=== PATIENT | female | born 1995 | race Caucasian/White ===

== ENCOUNTER → 2016-09-22 11:30 | Outpatient (CLI) | payer OTHER | END | disposition home or self-care (01) | LOC: D.US 11:30 | DX: R93.8 Abnormal findings on diagnostic imaging of other specified body structures (principal) ==

== ENCOUNTER → 2017-01-27 12:14 | Outpatient (CLI) | payer OTHER | END | disposition home or self-care (01) | LOC: D.LDO 12:09 | DX: O36.8130 Decreased fetal movements, third trimester, not applicable or unspecified (principal); Z3A.39 39 weeks gestation of pregnancy ==

== ENCOUNTER → 2017-01-30 10:48 | Outpatient (CLI) | payer OTHER | END | disposition home or self-care (01) | LOC: D.LDO 10:48 | DX: O36.8130 Decreased fetal movements, third trimester, not applicable or unspecified (principal); O48.0 Post-term pregnancy; Z3A.40 40 weeks gestation of pregnancy ==

== ENCOUNTER → 2017-02-02 12:43 | Outpatient (CLI) | payer OTHER ==
[~2017-02-02 12:43] MED LIST: HYDROCODON-ACE1 EAC7 PO; IBUPROFEN600 MG PO; PRENATABS RX TA1 TAB PO
[2017-02-03 12:40] VITALS: BMI 27.5
== END | disposition home or self-care (01) ==
LOC: D.LDO 12:43
DX: O48.0 Post-term pregnancy (principal); Z3A.40 40 weeks gestation of pregnancy

== ENCOUNTER 2017-02-03 10:07 | Inpatient (IN) | payer OTHER ==
[~2017-02-03] VITALS: Ht 175.3 cm; Wt 84.5 kg
[2017-02-03 12:01] LABS: APPEARANCE CLEAR (CLEAR); BILIRUBIN NEGATIVE (NEGATIVE); COLOR YELLOW (YELLOW); GLUCOSE NEGATIVE (NEGATIVE); KETONE NEGATIVE (NEGATIVE); LEUKOCYTE ESTERASE 1+ (NEGATIVE); NITRITE NEGATIVE (NEGATIVE); PROTEIN NEGATIVE (NEGATIVE); UROBILINOGEN NORMAL (NORMAL)
[2017-02-03 12:04] LABS: BACTERIA FEW /hpf (NONE SEEN); RED CELLS - URINE OCC /hpf (0-5)
[2017-02-03 12:24] LABS: HEMATOCRIT 37.9 % (36.0-48.0); MCH 31.4 pg (26.0-34.0); MCHC 34.3 g/dL (31.0-37.0); MCV 91.5 fL (80.0-100.0); MEAN PLATELET VOLUME 11.9 fL (7.4-10.4); RBC 4.14 10x6/uL (4.00-5.40); RDW 12.5 % (11.5-14.5); WBC 18.1 10x3/uL (4.8-10.8)
[2017-02-03 12:40] VITALS: BP 111/60; Ht 175.3 cm; Wt 84.5 kg
[2017-02-03] MEDS ORDERED: PRENATABS RX TA1 TAB PO (13:34)
[2017-02-03 22:56] VITALS: BP 126/75
--- NOTE | 2017-02-03 23:20 | NUR ---
PT TRANSFERED TO ROOM 1257 VIA WC. PT TRANSFERED SELF TO BED WITH MINIMAL ASSISTANCE. PT ORIENTED TO ROOM. SEE CPN FOR PREVIOUS PT CHARTING. SEE JOSE FLOWSHEET FOR ASSESSMENT. PT DENIES ANY NEEDS AT THIS TIME. BED IN LOW POSITION, SIDE RAILS UP TIMES 2, CALL LIGHT AND PHONE IN REACH. FRIEND REMAINS AT PT BS FOR SUPPORT AND ASSISTANCE. WILL CONT TO MONITOR PT STATUS.
--- NOTE | 2017-02-04 01:07 | NUR ---
RN TO PT BS FOR ROUNDS. PT RESTING IN BED IN SEMI-FOWLERS POSITION, HOLDING , IN NO ACUTE DISTRESS. PT DENIES ANY NEEDS AT THIS TIME. BED IN LOW POSITION, SIDE RAILS UP TIMES 2, CALL LIGHT AND PHONE IN REACH. FRIEND AT PT BS FOR SUPPORT AND ASSISTANCE. INFANT REMAINS AT PT BS FOR COUPLET CARE. WILL CONT TO MONITOR PT STATUS.
--- NOTE | 2017-02-04 02:38 | NUR ---
RN CALLED TO PT BS TO ASSIST PT TO RESTROOM. PT AMBULATED WITHOUT DIFFICULTY. PT ABLE TO VOID. PT PERFORMED [facility] PER PREVIOUS INSTRUCTIONS. PT RETURNED TO BED WITHOUT ASSISTANCE. PT TOLERATED WELL. PT GAVE REPORT ON FEEDING. REQUESTS BE TRANSPORTED TO NURSERY FOR OBSERVATION TO ALLOW PT TO REST. INFANT TRANSPORTED TO NURSERY VIA OPEN CRIB. REPORT GIVEN TO NURSERY RN. PT DENIES ANY FURTHER NEEDS AT THIS TIME. BED IN LOW POSITION, SIDE RAILS UP TIMES 2, CALL LIGHT AND PHONE IN REACH. FRIEND TIMES 1 REMAINS AT PT BS FOR SUPPORT AND ASSISTANCE. WILL CONT TO MONITOR PT STATUS.
[2017-02-04 05:56] LABS: BASOPHILS 0.1 % (0-2); EOSINOPHILS 0.4 % (0-7); HEMATOCRIT 35.4 % (36.0-48.0); HEMOGLOBIN 11.9 g/dL (12-16); IMMATURE GRANULOCYTES 0.5 % (0-5); MCH 30.7 pg (26.0-34.0); MCHC 33.6 g/dL (31.0-37.0); MCV 91.5 fL (80.0-100.0); MEAN PLATELET VOLUME 11.5 fL (7.4-10.4); MONOCYTES 7.6 % (2-11); NEUTROPHILS 79.4 % (40-80); PLATELET COUNT 210 10x3/uL (130-400); RBC 3.87 10x6/uL (4.00-5.40); RDW 12.6 % (11.5-14.5); WBC 21.5 10x3/uL (4.8-10.8)
--- NOTE | 2017-02-04 06:03 | NUR ---
RN TO PT BS FOR ROUNDS. PT RESTING IN BED IN LEFT LATERAL POSITION, WITH EYES CLOSED, IN NO ACUTE DISTRESS. RESPIRATIONS EVEN AND UNLABORED. BED IN LOW POSITION, SIDE RAILS UP TIMES 2, CALL LIGHT AND PHONE IN REACH. FRIEND REMAINS AT PT BS FOR SUPPORT AND ASSISTANCE. WILL CONT TO MONITOR PT STATUS.
[2017-02-04 07:26] LABS: RAPID PLASMA REAGIN Non Reactive (Non Reactive)
--- NOTE | 2017-02-04 07:38 | NUR ---
DR SANFORD ON UNIT. NOTIFIED PT HAS NO PAIN MEDICATION ORDERED. NEW ORDER RECEIVED.
[2017-02-04 07:39] VITALS: BP 117/70
--- NOTE | 2017-02-04 07:39 | NUR ---
PT LYING SUPINE IN BED. AWAKE. AAO X 3. VSS. HRRR WITHOUT AUDIBLE MURMUR. BBS CLEAR. BS X 4. ABDOMEN SOFT/NON-DISTENDED. FUNDUS FIRM AT U/U. RUBRA LOCHIA SMALL AMT. NO CLOTS OR HEAVY BLEEDING NOTED. PERINEUM WITHOUT EDEMA. NEG HOMANS' SIGN. PPP. NO EDEMA NOTED TO BLE. PT C/O PAIN TO PERINEUM OF "6" ON 0-10 PAIN SCALE.
--- NOTE | 2017-02-04 07:48 | NUR ---
IBUPROFEN 600 MG GIVEN PO ORDERED. PT INSTRUCTED ON MED. VERBALIZES UNDERSTANDING.
--- NOTE | 2017-02-04 08:15 | NUR ---
DR SANFORD VISITS WITH PT.
--- NOTE | 2017-02-04 08:30 | NUR ---
PT SITTING UP IN BED. CARING FOR INFANT. DENIES NEEDS OR C/O.
--- NOTE | 2017-02-04 09:30 | NUR ---
PT SITTING UP IN BED. TALKING ON PHONE. DENIES C/O OR NEEDS.
--- NOTE | 2017-02-04 11:30 | NUR ---
PT AMBULATORY IN ROOM WITH IN ARMS. STATES HAS NOT SHOWERED. STATES "I HAD TO GET IN MY OWN CLOTHES BECAUSE THAT GOWN WAS AGGRAVATING ME". PT DENIES NEEDS OR C/O.
--- NOTE | 2017-02-04 12:30 | NUR ---
PT SITTING UP IN BED. CONSUMING REG DIET. TOLERATING WELL. DENIES C/O OR NEEDS. FAMILY IN ROOM WITH PT.
--- NOTE | 2017-02-04 13:43 | NUR ---
PT SITTING UP IN BED. HOLDS WITH MUCH WARMTH SHOWN. REQUESTS AND RECEIVES PERIPADS AND PANTIES.
[2017-02-04 15:06] VITALS: BP 99/72
--- NOTE | 2017-02-04 15:06 | NUR ---
PT AMBULATORY IN ROOM. STATES FINISHED WITH SHOWER. PT TO CHAIR. VSS. PT C/O ABDOMINAL CRAMPING AND PAIN TO PERINEUM OF "4-5" ON 0-10 PAIN SCALE. MOTRIN 600 MG GIVEN PO ORDERED. PT INSTRUCTED ON MED. VERBALIZES UNDERSTANDING. BED LINENS CHANGED AND TRASH EMPTIED.
--- NOTE | 2017-02-04 15:54 | NUR ---
PT SITTING UP IN CHAIR. HOLDS INFANT. DENIES NEEDS OR C/O.
--- NOTE | 2017-02-04 16:15 | NUR ---
PT SITTING ON SIDE OF BED. VISITS WITH FAMILY. DENIES NEEDS OR C/O.
--- NOTE | 2017-02-04 17:50 | NUR ---
PT SITTING UP IN BED. VISITS WITH FAMILY. STATES DID NOT GET SUPPER TRAY. DIETARY DEPT NOTIFIED.
--- NOTE | 2017-02-04 18:15 | NUR ---
PT SITTING UP IN BED. CONSUMING REG DIET. DENIES NEEDS OR C/O.
--- NOTE | 2017-02-04 18:56 | NUR ---
REPORT GIVEN TO ON-COMING SHIFT.
[2017-02-04 19:55] VITALS: BP 121/84
--- NOTE | 2017-02-04 19:55 | NUR ---
PT. UP WALKING IN ROOM. GAIT STEADY. CHEERFUL. DENIES ANY PAIN AT THIS TIME. FUNDUS FIRM U/3 AND LOCHIA RUBRA SCANT TO MOD. DENIES ANY DISCOMFORT IN LOWER EXTREMITIES. PT. RECLINED IN BED FOR ASSESSMENT. BREATH SOUNDS CLEAR AND BOWEL SOUNDS AUDIBLE. FAMILY AT BEDSIDE. PT. COMMENTING HOW WELL LATCHED WITH LAST FEEDING. PT. STATES THAT SHE WANTS IV SALINE LOCK REMOVED. INFORMED PT. THAT IF MEDS OR BLOOD WERE ORDERED THAT HAD TO BE PLACED IN IV , IV WOULD HAVE TO BE RESTARTED. PT. STATES "THAT WOULD BE FINE" AND CONTINUES TO REQUEST SALINE LOCK REMOVED. BREASTFEEDIN INFORMATION GIVEN TO PT. INCLUDING USE OF BREASTCREAM AND PT. STATES UNDERSTANDING. PT. DOES NOT HAVE BREASTCREAM AT HOSPITAL WITH HER. STATES SHE HAS SOME AT HOME. INFORMED WOULD PROVIDE.
--- NOTE | 2017-02-04 20:10 | NUR ---
IV SALINE LOCK DISCONTINUED WITH INTACT CATH TIP NOTED.
--- NOTE | 2017-02-04 20:20 | NUR ---
BREASTCREAM PROVIDED TO PT. PT. STATES UNDERSTANDING REGARDING USE. FAMILY MEMBER ON SOFA LYING DOWN. REQUESTED BLANKETS AND PILLOW AND SAME PROVIDED. PT. CONTINUES TO AMBULATE IN ROOM AND GUEST IS HOLDING INFANT.
--- NOTE | 2017-02-04 21:08 | NUR ---
PT. AMBULATORY IN [facility]. STATES SHE IS GOING TO VENDING AREA WITH FAMILY MEMBER. GAIT STEADY.
--- NOTE | 2017-02-04 21:20 | NUR ---
AMBULATORY BACK TO UNIT. INFORMED PT. OF SNACKS AVAILABLE TO HER. CHIPS AND SANDWICH TRAY SERVED TO PT. GAIT STEADY.
--- NOTE | 2017-02-04 23:00 | NUR ---
ROUNDS MADE. PT SITTING UP IN BED AA&O X 4 WITH INFANT UP IN ARMS. VISITOR AT BEDSIDE. PT DENIES NEEDS AT PRESENT. REPORTS PERINEAL PAIN 3-09/29. DECLINES OFFERS FOR PAIN INTERVENTIONS AT THIS TIME.
--- NOTE | 2017-02-05 01:00 | NUR ---
ROUNDS MADE PER SWATI VILLEGAS RN. REPORTS PT DENIES PAIN OR NEEDS AT PRESENT.
--- NOTE | 2017-02-05 05:05 | NUR ---
LYING ON BACK HOLDING . ICE WATER PROVIDED FOR PT. DENIES ANY FURTHER NEEDS.
--- NOTE | 2017-02-05 06:34 | NUR ---
UP IN SHOWER AT PRESENT. FRIEND SLEEPING ON SOFA.
--- NOTE | 2017-02-05 08:30 | NUR ---
pt up and about in room. denies needs. infant in room.
[2017-02-05 08:45] VITALS: BP 126/79
--- NOTE | 2017-02-05 09:18 | NUR ---
Carolee Hartley 02/05/17 LE@ 8:30 S: Patient states she feels great. Delivery was easy only pushed for 30 minutes and baby was out. States is going good. O: Patient standing up next to her bed, talking with friend in room, and infant in crib sleeping. Explained takes time and patience in the beginning. should feed on demand when showing feeding cues. Provided handout and explained feeding cues. Explained breastmilk composition, for the first several days your body makes colostrum. Colostrum is high in antibodies, your colostrum will increase in volume daily to meet infant needs, it's very important to latch infant for every feeding. It is normal for infant to eat often. Breastfeed babies eat 8-12 times in 24 hours. Which can be almost every 2 hours during the day, every 3- 4 hours at night. This will help with establishing your milk supply. Explained how to verify is latched correctly to the breast. Turn baby completely tummy to tummy, nose opposite of nipple, gently support head, and allow to self-latch. mouth should be full of breast not just the nipple only. Provided and explained handouts on positions, benefits of skin to skin, waking a sleeping baby, what to expect the first week, engorgement, and hand expression. Observed feeding cues, offered to help latch for feeding. Observed patient attempting to latch , states her nipples are sore. appears to only latch on the nipple. Explained how to correctly hold infant, tummy to tummy, allow infant to open is mouth wide. latched to the left breast at 9:10 in laid back position. Mouth 140 degrees, round cheeks, sucking in a rocking motion. Both mother and appear content with feeding. came off the breast and patient was able to re latch by herself. Apply lanolin after every feeding and verifying infant is latched correctly to the breast will help with sore nipples. Patient nipples don't appear to be red nor does she have any scabs on her nipples. Please ask for help as needed to verify infant is latched correctly, patient verbally agrees. Congratulated on delivery and recommended to contact [facility] as needed with any questions or concerns regarding , provided work cell number. Asked if any questions or concerns? A: Assisted with infant being latched to the breast for feeding. P: Continue to support exclusively during hospital visit. Deborah Parker, CLC
[2017-02-05] MEDS ORDERED: HYDROCODON-ACE1 EAC7 PO (11:47)
[2017-02-05] MEDS ORDERED: IBUPROFEN600 MG PO (11:48)
--- NOTE | 2017-02-05 12:00 | NUR ---
UP AND ABOUT IN ROOM. DENIES NEEDS. NO REQUESTS.
--- NOTE | 2017-02-05 14:00 | NUR ---
discharge inst verbal and written given. prescriptions x 2 given. pt med rec. and drug data info given. pfw post inst given. discharge inst given. pt instructed to call nurse when ready for escort to auto. denies needs.
--- NOTE | 2017-02-05 14:20 | NUR ---
PT REFUSES W/C. AMBULATORY OFF UNIT WITH AND FAMILY.
== END 2017-02-05 14:20 | disposition home or self-care (01) | DRG 775 ==
LOC: D.LDO 10:07 → D.LD 12:48
PROVIDERS: ADMIT Obstetrics & Gynecology
PROC: 10E0XZZ Delivery of Products of Conception, External Approach (ICD-10-PCS; principal; 2017-02-03)
PROC: 0UQGXZZ Repair Vagina, External Approach (ICD-10-PCS; 2017-02-03)
DX: O75.89 Other specified complications of labor and delivery (principal); F31.9 Bipolar disorder, unspecified; J45.909 Unspecified asthma, uncomplicated; O99.334 Smoking (tobacco) complicating childbirth; Z3A.41 41 weeks gestation of pregnancy; Z37.0 Single live birth; O71.4 Obstetric high vaginal laceration alone; O69.81X0 Labor and delivery complicated by cord around neck, without compression, not applicable or unspecified

== ENCOUNTER 2018-02-22 23:33 | Inpatient (IN) | payer MEDICAID ==
[~2018-02-22] VITALS: Ht 175.3 cm; Wt 61.8 kg
[2018-02-22] MEDS ORDERED: BUSPAR10 MG PO (23:37)
[2018-02-22] MEDS ORDERED: ATARAX 25 MG TA25 MG PO (23:37)
[2018-02-23 01:14] VITALS: BP 108/75; BMI 20.1
[2018-02-23 04:00] VITALS: BP 108/75
[2018-02-23 04:56] LABS: ALBUMIN 3.2 g/dL (3.4-5.0); BILIRUBIN - DIRECT 1.65 mg/dL (0.00-0.30); BILIRUBIN - INDIRECT 1.1 mg/dL (0.00-1.00); BILIRUBIN - TOTAL 2.75 mg/dL (0.2-1.3); PROTEIN - SERUM 6.1 g/dL (6.4-8.2)
[2018-02-23 08:08] VITALS: BP 98/60
[2018-02-23 10:06] VITALS: Ht 175.3 cm; Wt 61.8 kg
[2018-02-23 11:00] VITALS: BP 123/70
[2018-02-23 12:02] LABS: BASOPHILS 0.4 % (0-2); EOSINOPHILS 1.5 % (0-7); HEMATOCRIT 36.1 % (36.0-48.0); HEMOGLOBIN 11.9 g/dL (12-16); IMMATURE GRANULOCYTES 0.2 % (0-5); LYMPHOCYTES 39.7 % (15-50); MCH 28.6 pg (26.0-34.0); MCV 86.8 fL (80.0-100.0); MEAN PLATELET VOLUME 11.9 fL (7.4-10.4); MONOCYTES 9.5 % (2-11); NEUTROPHILS 48.7 % (40-80); PLATELET COUNT 184 10x3/uL (130-400); RBC 4.16 10x6/uL (4.00-5.40); WBC 4.6 10x3/uL (4.8-10.8)
[2018-02-23 14:35] VITALS: BP 104/53
[2018-02-23 20:14] VITALS: BP 99/45
[2018-02-24 00:19] VITALS: BP 135/48
[2018-02-24 04:00] VITALS: BP 105/59
[2018-02-24 05:54] LABS: BASOPHILS 0.2 % (0-2); EOSINOPHILS 1.9 % (0-7); HEMATOCRIT 38.2 % (36.0-48.0); HEMOGLOBIN 12.5 g/dL (12-16); IMMATURE GRANULOCYTES 0.2 % (0-5); LYMPHOCYTES 47.6 % (15-50); MCH 28.3 pg (26.0-34.0); MCHC 32.7 g/dL (31.0-37.0); MCV 86.4 fL (80.0-100.0); MEAN PLATELET VOLUME 11.7 fL (7.4-10.4); MONOCYTES 8.8 % (2-11); NEUTROPHILS 41.3 % (40-80); PLATELET COUNT 161 10x3/uL (130-400); RBC 4.42 10x6/uL (4.00-5.40); RDW 15.3 % (11.5-14.5); WBC 4.8 10x3/uL (4.8-10.8)
[2018-02-24 06:15] LABS: ALBUMIN 3.2 g/dL (3.4-5.0); ALKALINE PHOSPHATASE 288 U/L (46-116); ALT (SGPT) 240 U/L (10-68); BILIRUBIN - TOTAL 1.98 mg/dL (0.2-1.3); CALC OSMOLALITY 278 mosm/kg (275-300); CALCIUM 8.1 mg/dL (8.5-10.1); CARBON DIOXIDE 25.2 mmol/L (21.0-32.0); CHLORIDE - SERUM 108 mmol/L (98-107); CREATININE - SERUM 0.6 mg/dL (0.6-1.3); GLUCOSE 78 mg/dL (74-106); MAGNESIUM - SERUM 1.9 mg/dL (1.8-2.4); POTASSIUM - SERUM 3.6 mmol/L (3.5-5.1); PROTEIN - SERUM 6.1 g/dL (6.4-8.2); SODIUM 142 mmol/L (136-145); UREA NITROGEN 4 mg/dL (7-18); eGFR NON AFRICAN AMERICAN > 90 mL/min (90-120)
[2018-02-24 07:50] VITALS: BP 128/72
[2018-02-24 08:00] VITALS: BP 126/75
[2018-02-24 10:50] VITALS: BP 132/78
[2018-02-24 14:32] LABS: HCG SERUM NEGATIVE (NEGATIVE)
[2018-02-24 16:33] VITALS: BP 110/72
[2018-02-25 04:00] VITALS: BP 96/56
[2018-02-25 05:59] LABS: BASOPHILS 0.1 % (0-2); EOSINOPHILS 0.1 % (0-7); HEMATOCRIT 38.6 % (36.0-48.0); HEMOGLOBIN 12.5 g/dL (12-16); IMMATURE GRANULOCYTES 0.1 % (0-5); LYMPHOCYTES 13.9 % (15-50); MCH 28.3 pg (26.0-34.0); MCHC 32.4 g/dL (31.0-37.0); MCV 87.3 fL (80.0-100.0); NEUTROPHILS 79.8 % (40-80); PLATELET COUNT 166 10x3/uL (130-400); RBC 4.42 10x6/uL (4.00-5.40); RDW 15.1 % (11.5-14.5)
[2018-02-25 06:09] LABS: WBC 6.8 10x3/uL (4.8-10.8)
[2018-02-25 06:19] LABS: ALKALINE PHOSPHATASE 235 U/L (46-116); ALT (SGPT) 187 U/L (10-68); BILIRUBIN - TOTAL 1.25 mg/dL (0.2-1.3); CALCIUM 8.4 mg/dL (8.5-10.1); CARBON DIOXIDE 24.8 mmol/L (21.0-32.0); CHLORIDE - SERUM 107 mmol/L (98-107); CREATININE - SERUM 0.7 mg/dL (0.6-1.3); MAGNESIUM - SERUM 1.9 mg/dL (1.8-2.4); POTASSIUM - SERUM 3.9 mmol/L (3.5-5.1); PROTEIN - SERUM 6.3 g/dL (6.4-8.2); SODIUM 142 mmol/L (136-145); UREA NITROGEN 4 mg/dL (7-18); eGFR NON AFRICAN AMERICAN > 90 mL/min (90-120)
[2018-02-25 06:22] LABS: CALC OSMOLALITY 280 mosm/kg (275-300); GLUCOSE 119 mg/dL (74-106)
[2018-02-25 07:46] VITALS: BP 107/60
[2018-02-25] MEDS ORDERED: HYDROCODON-ACE1 EAC7 PO (08:34)
[2018-02-25 11:26] VITALS: BP 110/56
== END 2018-02-25 12:41 | disposition home or self-care (01) | DRG 418 ==
LOC: D.ER 23:33 → D.M2 23:57 → D.ER 02-23 00:24 → D.M2 02-25 12:41
PROVIDERS: Emergency Medicine; Family Medicine; Surgery
PROC: BF131ZZ Fluoroscopy of Gallbladder and Bile Ducts using Low Osmolar Contrast (ICD-10-PCS; 2018-02-24)
PROC: 0FT44ZZ Resection of Gallbladder, Percutaneous Endoscopic Approach (ICD-10-PCS; principal; 2018-02-24 15:00)
DX: K80.70 Calculus of gallbladder and bile duct without cholecystitis without obstruction (principal); R17 Unspecified jaundice; R74.8 Abnormal levels of other serum enzymes; Z72.0 Tobacco use